=== PATIENT | male | born 1960 | race Caucasian/White ===

== ENCOUNTER 2017-07-12 06:24 | Day surgery (SDC) | payer BC, SELFPAY ==
--- NOTE | 2017-07-06 13:59 | EKG12_ITS ---
Test Reason : PREOP Blood Pressure : / mmHG Vent. Rate : 073 BPM Atrial Rate : 073 BPM P-R Int : 124 ms QRS Dur : 086 ms QT Int : 356 ms P-R-T Axes : 062 015 050 degrees QTc Int : 392 ms Normal sinus rhythm Possible Left atrial enlargement Borderline ECG Confirmed by RAJINDER MCCLAIN, JAMEE ([id number]), casting and locker room servicer DANILO MONROE ([id number] on 07/08/2017 11:29:45 AM Referred By: Edy Garcia Confirmed By:JAMEE CALVILLO MD
[2017-07-06 16:08] LABS: Hematocrit 43.6 % (40-54); Mean Corp Hgb Conc 34.4 g/gl (32-36); Mean Corpuscular Hgb 32.9 pg (27.0-32.0); Mean Corpuscular Volume 95.6 fL (80-94); Mean Platelet Vol. 11.8 fl (6.2-12.0); Platelet Count 181 K/mm3 (150-450); RBC Distribution Width CV 13.2 % (11.6-14.6); RBC Distribution Width SD 44.7 fl (35.1-43.9); Red Blood Count 4.56 M/mm3 (4.6-6.2); White Blood Count 7.8 K/mm3 (4.4-11.0)
[2017-07-06 16:16] LABS: Scan Indicated on CBC? Y/N NO
[2017-07-06 17:37] LABS: Anion Gap 8 (5-15); BUN 13 mg/dL (7-18); BUN/Creat Ratio 15.6 RATIO (10-20); Calcium,Total 8.7 mg/dL (8.5-10.1); Chloride 103 mmol/L (98-107); Creatinine, Serum 0.83 mg/dL (0.70-1.30); EST Glomerular Filtration Rate 101 mL/min (>60); Est Glom Filt Rate - Afr Amer 123 mL/min (>60); Glucose 87 mg/dL (70-110); Potassium 3.7 mmol/L (3.5-5.1); Sodium Level 140 mmol/L (136-145)
[2017-07-12 07:11] VITALS: BP 147/85; PULSE 78; RESP 18; TEMP 36.6; O2SAT 97; BMI 25.7
[2017-07-12] MEDS: Cefazolin 2 GM in 0.9% Normal Saline 100 ML IV (08:39)
--- NOTE | 2017-07-12 08:57 | EKG12_ITS ---
Test Reason : Blood Pressure : / mmHG Vent. Rate : 105 BPM Atrial Rate : 105 BPM P-R Int : 142 ms QRS Dur : 078 ms QT Int : 342 ms P-R-T Axes : 054 -14 -18 degrees QTc Int : 452 ms Sinus tachycardia Nonspecific ST abnormality Abnormal ECG Confirmed by RAJINDER MCCLAIN, JAMEE ([id number]), state editor DANILO MONROE ([id number]) on 07/14/2017 2:52:35 PM Referred By: Edy Garcia Confirmed By:JAMEE CALVILLO MD
[2017-07-12] MEDS: Bupiv/Epi 0.5% Mpf 30 ML Vial (09:25)
--- NOTE | 2017-07-12 10:28 | PCM.DC.ORTHO ---
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 May remove for showers and therapy only. Additional Instructions: Pain medication rx given at office. Allergies/Adverse Reactions: Allergies No Known Allergies Allergy (Verified 07/09/17 08:26) Medications to take at Discharge Arginine [l-Arginine] 1,500 mg PO DAILY 07/09/17 Esomeprazole Mag Trihydrate [Nexium] 20 mg PO DAILY 07/09/17 Losartan Potassium [Cozaar] 50 mg PO DAILY 07/09/17 Lysine [l-Lysine] 2,000 mg PO DAILY 07/09/17 Multivitamin [Multiple Vitamins] 1 each PO DAILY 07/09/17 Sengreek 1 cap PO BID 07/09/17 Please Follow Up With: Edy Garcia DO When: 2 weeks
[2017-07-12 10:31] VITALS: BP 124/77; BP 147/85; PULSE 68; RESP 16; TEMP 36; O2SAT 99
--- NOTE | 2017-07-12 10:31 | DCINST_ITS ---
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 May remove for showers and therapy only. Additional Instructions: Pain medication rx given at office. Allergies/Adverse Reactions: Allergies No Known Allergies Allergy (Verified 07/09/17 08:26) Medications to take at Discharge Arginine [l-Arginine] 1,500 mg PO DAILY 07/09/17 Esomeprazole Mag Trihydrate [Nexium] 20 mg PO DAILY 07/09/17 Losartan Potassium [Cozaar] 50 mg PO DAILY 07/09/17 Lysine [l-Lysine] 2,000 mg PO DAILY 07/09/17 Multivitamin [Multiple Vitamins] 1 each PO DAILY 07/09/17 Sengreek 1 cap PO BID 07/09/17 Please Follow Up With: Edy Garcia DO When: 2 weeks
--- NOTE | 2017-07-12 10:34 | PCM.OPRPT ---
Report of Operation Date of Procedure: 07/12/17 Pre-Operative Diagnosis: Left shoulder impingement syndrome, acromioclavicular joint osteoarthrosis left shoulder Post-Operative Diagnosis: Same with rotator cuff tear supraspinatus Surgery/Procedure Performed:: Diagnostic and operative arthroscopy of the left shoulder with subacromial decompression, distal clavicle resection, rotator cuff repair, extensive intra-articular debridement Description of Surgical Findings:: High-grade partial-thickness tearing of the supraspinatus Type of Anesthesia:: General/Regional Anesthesiologist: Rocco Toure Estimated Blood Loss (mL): 5 Fluids Replaced: See anesthesia report Description of Procedure: Implants: Ripstop ?1 Arthrex Surgical indications: Geraldo is a 56-year-old male who has persistent shoulder pain that is filled conservative measures. MRI does reveal the rotator cuff is intact with some tendinosis of the supraspinatus Procedure description: Patient was greeted in the preoperative area. Their left shoulder was marked with surgical marker. Preoperative antibiotics were administered. The patient was then taken to the operating suite in a stable condition. After adequate anesthesia was obtained and it was secured there placed in standard beachchair position. All bony prominences were well-padded her head was secured in a beachchair positioner. The arm was then prepped and draped in the usual sterile fashion. Surgical timeout was performed surgery was commenced. Standard posterior viewing portal was made and 30? arthroscope was introduced into the glenohumeral joint. Anterior portal was made under direct visualization. Extensive debridement of the anterior capsule was performed evaluation of the shoulder itself was performed with the following findings: High-grade partial tearing intrasubstance supraspinatus with fraying at the attachment intra-articularly The subacromial space was then entered and extensive debridement of the subacromial bursa was performed. The undersurface of the acromion was then debrided with a thermal wand. This did reveal a type II acromion. Subacromial decompression was then performed with a arthroscopic bur from anterolateral posteromedial create a type I acromion. When this was complete the wand was then utilized to debride the acromioclavicular joint. No significant osteoarthritic changes. A distal clavicle resection was then performed removing approximately 5 mm of distal clavicle not violating the superior acromioclavicular ligament. This was complete, attention was then turned to the rotator cuff. The tendon attachment the bursal side was tenuous. It appeared to be then and of questionable quality. Then decided to release the tendon as the intrasubstance portion was in poor condition. I then removed any nonviable tissue until I was able to identify the quality tenderness tissue The greater tuberosity was debrided and decorticated to create some bleeding for rotator cuff healing. Scorpion suture passer was then utilized to place a ripstop the leading edge of the supraspinatus. This was then placed in a push lock which was then placed in the prepared greater tuberosity. Excellent approximation of the rotator cuff to the decorticated bone was achieved. At this point all instruments were removed and the arthroscopic portals were closed with 3-0 nylon. Well-padded nonadherent dressing was applied and patient was taken to recovery room in stable condition. - Complications none known - Admit VTE Documentation VTE Present on Admission: Yes VTE Mechan Device Prophylaxis: SCD's, Thigh High CHELSEY Hose VTE Pharm Prophylaxis ordered?: No Reason prophylaxis not ordered:: Procedure Not Indicated
[2017-07-12 10:45] VITALS: BP 102/88; BP 147/85; PULSE 65; RESP 16; O2SAT 95
[2017-07-12] MEDS: Ketorolac 15 MG/ML Vial IV (10:45)
[2017-07-12 10:58] VITALS: BP 134/81; BP 147/85; PULSE 62; RESP 16; TEMP 36.2; O2SAT 94
[2017-07-12] MEDS: HYDROcodone Bitartrate/Apap 5/325 Tablet PO (12:45)
== END 2017-07-12 13:22 | disposition home or self-care (01) ==
LOC: SDC 06:24 → AC 06:25
PROVIDERS: Family Provider Family Medicine; PCP Family Medicine; Visit Provider Orthopaedic Surgery
PROC: (CPT 29827; principal; 2017-07-12 08:25)
DX: M75.42 Impingement syndrome of left shoulder (principal); M19.012 Primary osteoarthritis, left shoulder; M75.102 Unspecified rotator cuff tear or rupture of left shoulder, not specified as traumatic; M75.52 Bursitis of left shoulder; I10 Essential (primary) hypertension; K21.9 Gastro-esophageal reflux disease without esophagitis; Z79.899 Other long term (current) drug therapy; Z87.891 Personal history of nicotine dependence
CPT/HCPCS: 29823; 29824; 29826; 29827; 64415; 36415; 80048; 85027; 93005; J7120